=== PATIENT | female | born 1945 | race Caucasian/White ===

== ENCOUNTER 2016-06-02 07:44 | Inpatient (IN) | payer MEDICARE, OTHER ==
[2016-06-02] MEDS ORDERED: SODIUM CHLORIDE 0.9% 1,000 ML IV STA (08:00)
[2016-06-02] MEDS ORDERED: HYDROmorphone 1 MG/ML 1 ML SYRINGE IVP STA (08:00)
[2016-06-02] MEDS ORDERED: SODIUM CHLORIDE 0.9% 500 ML IV STA (08:00)
--- NOTE | 2016-06-02 09:26 | ED ---
General Adult HPI - General Chief complaint: Chest Pain Stated complaint: chest pain Time Seen by Provider: 06/02/16 07:52 Source: patient, EMS, RN notes reviewed, old records reviewed Mode of arrival: EMS Limitations: no limitations - History of Present Illness Initial comments: This is a 71-year-old female here for evaluation. This patient presents for evaluation of chest pain. Significant chest pain. Patient has history of breast cancer, patient is a separate visit transfer patient from our hospital for evaluation of new bony metastasis and chest pain. No fevers cough or congestion, patient pain is currently controlled - Related Data Home Medications Medication Instructions Recorded Confirmed Anastrozole [Arimidex] 1 mg PO DAILY 10/23/13 06/02/16 Escitalopram [Lexapro] 20 mg PO DAILY 10/23/13 06/02/16 Hydrochlorothiazide [Hydrodiuril] 25 mg PO DAILY 10/23/13 06/02/16 Ibuprofen [Motrin] 600 mg PO Q6H PRN 10/23/13 06/02/16 Metoprolol Succinate (ER) [Toprol 50 mg PO DAILY 10/23/13 06/02/16 XL] NIFEdipine XL [Procardia XL] 30 mg PO DAILY 08/12/14 06/02/16 Calcium Carbonate [Calcium] 1,200 mg PO DAILY 06/02/16 06/02/16 Cholecalciferol [Vitamin D3] 1,000 unit PO DAILY 06/02/16 06/02/16 Vitamin B Complex 1 cap PO DAILY 06/02/16 06/02/16 Allergies Allergy/AdvReac Type Severity Reaction Status Date / Time Sulfa (Sulfonamide Allergy Rash/Hives Verified 06/02/16 08:40 Antibiotics) Review of Systems ROS Statement: Those systems with pertinent positive or pertinent negative responses have been documented in the HPI. ROS Other: All systems not noted in ROS Statement are negative. Past Medical History Past Medical History: Cancer, Deep Vein Thrombosis (DVT), Hypertension Additional Past Medical History / Comment(s): LEFT BREAST CA 2010, DVT IN 2011 R /T TO INFUSAPORT RT SIDE, BACK PAIN History of Any Multi-Drug Resistant Organisms: None Reported Past Surgical History: Breast Surgery, Section Additional Past Surgical History / Comment(s): LEFT MASTECTOMY, INFUSAPORT IN AND NOW OUT, PAIN CLINIC PROCEDURES Past Anesthesia/Blood Transfusion Reactions: Motion Sickness, Postoperative Nausea & Vomiting (PONV) Past Psychological History: Depression Smoking Status: Never smoker Past Alcohol Use History: None Reported Past Drug Use History: None Reported - Past Family History Mother Family Medical History: No Reported History General Exam Limitations: no limitations General appearance: alert, in no apparent distress, anxious Head exam: Present: atraumatic, normocephalic, normal inspection Eye exam: Present: normal appearance, PERRL, EOMI. Absent: scleral icterus, conjunctival injection, periorbital swelling ENT exam: Present: normal exam, mucous membranes moist Neck exam: Present: normal inspection. Absent: tenderness, meningismus, lymphadenopathy Respiratory exam: Present: normal lung sounds bilaterally. Absent: respiratory distress, wheezes, rales, rhonchi, stridor Cardiovascular Exam: Present: regular rate, normal rhythm, normal heart sounds. Absent: systolic murmur, diastolic murmur, rubs, gallop, clicks GI/Abdominal exam: Present: soft, normal bowel sounds. Absent: distended, tenderness, guarding, rebound, rigid Extremities exam: Present: normal inspection, full ROM, normal capillary refill. Absent: tenderness, pedal edema, joint swelling, calf tenderness Back exam: Present: normal inspection Neurological exam: Present: alert, oriented X3, CN II-XII intact Psychiatric exam: Present: normal affect, normal mood Skin exam: Present: warm, dry, intact, normal color. Absent: rash Course Vital Signs 06/02/16 06/02/16 06/02/16 07:50 08:44 10:05 Temperature 99 F Pulse Rate 72 75 64 Respiratory 14 16 18 Rate Blood Pressure 131/73 130/64 119/71 O2 Sat by Pulse 96 96 97 Oximetry - Reevaluation(s) Reevaluation #1: 06/02/16 10:09 Records from transfer facility are reviewed including CAT scan EKG Findings - EKG Comments: EKG Findings:: EKG shows normal sinus rhythm rate of 60, UT 144, QRS 82, QTC 448 Medical Decision Making - Medical Decision Making 71 female [place] of this transfer patient for evaluation of metastasis, rib fracture secondary to metastasis and chest pain. Patient will be as cardiac observation and serial troponins as well as pain management. Disposition Clinical Impression: Chest pain, Atypical chest pain, Breast cancer, Bone metastases Disposition: ADMITTED IP TO THIS HOSP Condition: Fair Referrals: Kofi Michelle MD [Primary Care Provider] - 1-2 days
[2016-06-02] MEDS ORDERED: MORPHINE SULFATE 4 MG/ML SYRINGE IV PRN (10:07)
[2016-06-02 11:57] LABS: Creatine Kinase 32 U/L (30-135)
[2016-06-02 12:10] LABS: Creatine Kinase MB <0.2 ng/mL (0.0-2.4); Troponin I <0.012 ng/mL (0.000-0.034)
[2016-06-02] MEDS: HYDROmorphone 1 MG/ML 1 ML SYRINGE IVP PRN ×4 (12:19→21:58)
[2016-06-02] MEDS ORDERED: IBUPROFEN 600 MG TAB PO PRN (15:45)
[2016-06-02] MEDS: SODIUM CHLORIDE 0.9% 1,000 ML IV SCH ×2 (16:29→23:15)
[2016-06-02] MEDS ORDERED: ESCITALOPRAM 20 MG TAB PO STA (16:53)
[2016-06-02] MEDS ORDERED: METOPROLOL SUCCINATE (ER) 50 MG TAB.ER.24H PO STA (16:53)
[2016-06-02] MEDS: HYDROCHLOROTHIAZIDE 25 MG TAB PO SCH (17:24)
[2016-06-02] MEDS ORDERED: ZOLPIDEM 5 MG TAB PO PRN (18:42)
[2016-06-02 19:08] LABS: Creatine Kinase 36 U/L (30-135)
[2016-06-02 19:23] LABS: Creatine Kinase MB <0.2 ng/mL (0.0-2.4); Troponin I <0.012 ng/mL (0.000-0.034)
--- NOTE | 2016-06-02 22:06 | HP ---
DATE OF ADMISSION: 06/02/2016 CHIEF COMPLAINT: Back pain. HISTORY OF PRESENT ILLNESS: This is another admission for this 71-year-old white female who has metastatic breast cancer. She treats with Dr. Rocha. She started to have some back pain about 6 weeks ago and then in the last 2 to 3 days it has grown severe. She was diagnosed in 2000 and was treated with mastectomy, radiation and chemotherapy. She cannot tolerate the pain and came to the emergency room. REVIEW OF SYSTEMS: She has had no headaches, visual changes, significant abdominal pain, vomiting, melena, hematochezia, renal complaints, etc. She has had no history of any heart disease. She does have hypertension. She is not diabetic. Past medical history, family history, and personal histories these are to be found in other records in the hospital. Her medications are listed on her MAR. ALLERGIES: SHE IS ALLERGIC TO SULFA. PAST SURGICAL HISTORY: She has had the breast treatments, . She does not smoke. PHYSICAL EXAMINATION: Blood pressure is 121/82 with a pulse of 85 and she is afebrile. GENERAL: She appeared to be well developed, well-nourished and in some distress with movement. HEENT: Head, ears, eyes, nose, mouth, and throat were normal. Neck veins not distended. Thyroid is not enlarged. CHEST: Clear. CARDIAC: Normal sinus rhythm and the abdomen is slightly protuberant. There are no masses or visceromegaly. EXTREMITIES: Normal. NEUROLOGICAL: She is intact. She is admitted to the hospital with diagnoses: Intractable bone pain due to metastases from her breast carcinoma. PLAN: 1. Bed rest. 2. IV fluids. 3. Analgesia. 4. Oncology consult.
[2016-06-03] MEDS: HYDROmorphone 1 MG/ML 1 ML SYRINGE IVP PRN ×7 (00:50→22:57)
[2016-06-03 01:56] LABS: Cholesterol 200 mg/dL (<200); HDL Cholesterol 54 mg/dL (40-60); Triglycerides 183 mg/dL (<150)
[2016-06-03] MEDS: SODIUM CHLORIDE 0.9% 1,000 ML IV SCH ×2 (06:02→12:00)
[2016-06-03] MEDS ORDERED: HYDROCHLOROTHIAZIDE 25 MG TAB PO SCH (09:00)
[2016-06-03] MEDS: METOPROLOL SUCCINATE (ER) 50 MG TAB.ER.24H PO SCH (09:15)
[2016-06-03] MEDS: ESCITALOPRAM 20 MG TAB PO SCH (09:15)
[2016-06-03] MEDS: NIFEdipine XL 30 MG TAB.ER.24 PO SCH (09:15)
[2016-06-03] MEDS: HYDROCHLOROTHIAZIDE 25 MG TAB PO SCH (09:15)
[2016-06-03] MEDS: CHOLECALCIFEROL 1,000 UNIT TAB PO SCH (09:15)
[2016-06-03] MEDS: ASPIRIN 325 MG TAB PO SCH (09:15)
[2016-06-03] MEDS: CALCIUM CARBONATE 500 MG CHEWABLE PO SCH (09:15)
[2016-06-03] MEDS: ANASTROZOLE 1 MG TAB PO SCH (09:16)
[2016-06-03] MEDS: ENOXAPARIN 40 MG/0.4 ML SYRINGE SQ SCH (09:16)
[2016-06-03] MEDS ORDERED: B COMPLEX-VIT C-VIT E-ZINC 1 EACH TAB PO SCH (12:00)
[2016-06-03] MEDS: ONDANSETRON 4 MG/2 ML VIAL IVP PRN ×2 (13:35→19:13)
--- NOTE | 2016-06-03 14:02 | P.CONS ---
History of Present Illness - Reason for Consult Consult date: 06/03/16 breast cancer, bone mets Requesting physician: Frank Bartlett - Chief Complaint intractable pain - History of Present Illness Mrs. Broussard is a very pleasant female pt of Dr. 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 Pt had left modified radical mastectomy with 12/08 LN positive. She had adjuvant chemotherapy with dose dense adriamycin and cytoxan followed by 12 weekly Taxol on 05/18/2011. She then completed adjuvant radiation therapy, 32 treatments, 07/29/2011. She was then place on arimidex and has been on that for 5 years. Pt had bone density in July 2011 revealing osteopenia. Follow up CT CAP 07/02/2012 revealed no evidence of disease, she had a stable 4mm RLL lung nodule-stable since at least since 2010. Bone scan on 06/28/2012 revealed no evidence of disease. She had a spine MRI on 12/07/12, ordered by PCP, for back pain, there was an area on the throacic spine that was unable to be further defined, further inaging did not reveal definitive met. Pt had a brain MRI in March 2013 for dizziness and vertigo which was negative for brain metastasis and her symptoms ultimately resolved. Mammogram 08/07/2013, negative, bone density on 08/07/2013 revealed osteopenia, bone density on 08/10/2015 revealed persistent osteopenia, slightly worse compared to previous one, pt refused RANK ligand therapy. Mammogram on was negative. Pt had an episode of vertigo again in May 2015, CT scan of brain was negative and her vertigo improved. Pt last seen by Dr. Rocha 03/11, 6 mo f/u was planned with bone density sched prior to OV. Pt stated that for about the last 6 weeks she has had more upper back pain, OTC remedies were helping but the pain progressed to the point that OTC meds were not helping, the pain is radiating the the anterior chest, under the ribs, she also has right rib pain. Pt denies fevers, sweats, lymph node swelling, dysphagia, anorexia, nausea, she does not feel the pain in her chest is cardiac "it feels deep", she denies palpitations, SOB, cough, abd pain or distension, changes in bowel or bladder habits, no acute changes in energy levels, excessive fatigue, weakness, numbness or tingling. Review of Systems All systems: negative Constitutional: Reports as per HPI Past Medical History Past Medical History: Cancer, Deep Vein Thrombosis (DVT), Hypertension, Osteoarthritis (OA) Additional Past Medical History / Comment(s): LEFT BREAST CA 2010 with surgery/ chemo/radiation, R subclavian DVT IN 2011 R/T TO INFUSAPORT, arthritis back, BACK PAIN-has had pain injections which helped History of Any Multi-Drug Resistant Organisms: None Reported Past Surgical History: Breast Surgery, Section, Tubal Ligation Additional Past Surgical History / Comment(s): L breast bx, LEFT MASTECTOMY, INFUSAPORT IN AND NOW OUT, PAIN CLINIC PROCEDURES, cataracts bilaterally with lens implants, colonoscopy-normal. Past Anesthesia/Blood Transfusion Reactions: Motion Sickness, Postoperative Nausea & Vomiting (PONV) Past Psychological History: Depression Additional Psychological History / Comment(s): Pt states she is on Lexapro and it works well with her depression. She resides with her spouse. She is independetn. Smoking Status: Never smoker Past Alcohol Use History: Rare Past Drug Use History: None Reported - Past Family History Father Family Medical History: Cancer Additional Family Medical History / Comment(s): Father of prostate cancer at the age of 72yrs. Mother Family Medical History: No Reported History Additional Family Medical History / Comment(s): Mother was healthy and at the age of 80yrs. Medications and Allergies Home Medications Medication Instructions Recorded Confirmed Type Anastrozole [Arimidex] 1 mg PO DAILY 10/23/13 06/02/16 History Escitalopram [Lexapro] 20 mg PO DAILY 10/23/13 06/02/16 History Hydrochlorothiazide [Hydrodiuril] 25 mg PO DAILY 10/23/13 06/02/16 History Ibuprofen [Motrin] 600 mg PO Q6H PRN 10/23/13 06/02/16 History Metoprolol Succinate (ER) [Toprol 50 mg PO DAILY 10/23/13 06/02/16 History XL] NIFEdipine XL [Procardia XL] 30 mg PO DAILY 08/12/14 06/02/16 History Calcium Carbonate [Calcium] 1,200 mg PO DAILY 06/02/16 06/02/16 History Cholecalciferol [Vitamin D3] 1,000 unit PO DAILY 06/02/16 06/02/16 History Vitamin B Complex 1 cap PO DAILY 06/02/16 06/02/16 History Allergies Allergy/AdvReac Type Severity Reaction Status Date / Time Sulfa (Sulfonamide Allergy Rash/Hives Verified 06/02/16 08:40 Antibiotics) Physical Exam Vitals: Vital Signs Temp Pulse Pulse Resp BP BP Pulse Ox 06/03/16 12:00 97.8 F 71 14 132/73 96 06/03/16 08:00 98.3 F 93 16 146/72 94 L 06/03/16 04:00 98.8 F 104 H 16 181/88 94 L 06/03/16 00:00 98.7 F 108 H 18 164/88 93 L 06/02/16 20:00 98.9 F 81 18 145/79 92 L 06/02/16 16:00 98.4 F 79 16 157/70 92 L 06/02/16 14:38 98 Intake and Output 06/02/16 06/03/16 06/03/16 22:59 06:59 14:59 Intake Total 320 220 Balance 320 220 Intake: Oral 320 220 Other: Voiding Method Toilet Toilet # Voids 1 1 - Constitutional General appearance: average body habitus, cooperative, no acute distress - EENT Eyes: anicteric sclerae, PERRLA, normal appearance ENT: hearing grossly normal, normal oropharynx - Neck Neck: no lymphadenopathy - Respiratory Respiratory: bilateral: CTA (soft crackles in left base on inspiration) - Cardiovascular Rhythm: regular Heart sounds: normal: S1, S2 Abnormal Heart Sounds: no systolic murmur, no diastolic murmur, no rub, no S3 Gallop, no S4 Gallop, no click, no other leg Peripheral Edema: bilateral: None - Gastrointestinal General gastrointestinal: no absent bowel sounds, no decreased bowel sounds, no distended, no hepatomegaly, no hyperactive bowel sounds, normal bowel sounds, no organomegaly, no rigid, no scaphoid, soft, no splenomegaly, no tenderness, no umbilical hernia, no ventral hernia - Integumentary Integumentary: normal - Neurologic Neurologic: CNII-XII intact - Musculoskeletal pain T1-3 area with palpation, no visible deformity or mass. RUQ/rib pain, no deformity seen or felt, pt is guarding Musculoskeletal: strength equal bilaterally - Psychiatric Psychiatric: A&O x's 3, appropriate affect, intact judgment & insight Results Labs: Abnormal Lab Results - Last 24 Hours (Table) 06/02/16 Range/Units 11:19 Triglycerides 183 H (<150) mg/dL Cholesterol 200 H (<200) mg/dL LDL Cholesterol, Calc 109 H (0-99) mg/dL Assessment and Plan (1) Bone metastases Status: Acute (2) Breast cancer Status: Chronic Plan: Discussed with pt that the images from [facility] are suggestive of metastatic disease to the bones. If she now has disease in the bones then her current AI therapy is no longer effective and her treatment will need to be changed. Case was discussed with Dr. Rocha and he will see pt in 2-3 weeks for discussion of the same. No further images at this time, await Rad Onc evaluation. Labs and tumor markers have been ordered. For the acute pain, likely from the spinal bone met, Radiation Oncology has been consulted to review her case and make recommendations. Bisphosphonate therapy will be planned for and given outpatient. Pain meds will be titrated and converted to oral.
[2016-06-03] MEDS: DOCUSATE 100 MG CAP PO SCH ×2 (14:11→22:32)
[2016-06-03 14:26] LABS: Basophils % (A) 0 %; CH 32.9; CHCM 34.1; Eosinophils % (A) 0 %; HCT 35.6 % (34.0-46.0); HDW 2.87; HGB 11.8 gm/dL (11.4-16.0); Luc # (Auto) 0.23; Luc % (Auto) 3; Lymphocytes # (A) 1.3 k/uL (1.0-4.8); Lymphocytes % (A) 15 %; MCH 32.2 pg (25.0-35.0); MCHC 33.2 g/dL (31.0-37.0); Mean Platelet Volume 6.3; Monocytes # (A) 0.3 k/uL (0-1.0); Monocytes % (A) 4 %; Neutrophils # (A) 6.4 k/uL (1.3-7.7); Neutrophils % (A) 78 %; RBC 3.67 m/uL (3.80-5.40); RDW 13.2 % (11.5-15.5); WBC 8.3 k/uL (3.8-10.6); WBC (Perox) 8.44
[2016-06-03 14:34] LABS: ALT 39 U/L (9-52); AST 25 U/L (14-36); Alkaline Phosphatase 68 U/L (38-126); Anion Gap 5 mmol/L; Blood Urea Nitrogen 12 mg/dL (7-17); Calcium 9.8 mg/dL (8.4-10.2); Carbon Dioxide 30 mmol/L (22-30); Chloride 100 mmol/L (98-107); Glucose 125 mg/dL (74-99); Non-African American GFR(MDRD) >60 (>60 ml/min/1.73 sqM); Potassium 3.7 mmol/L (3.5-5.1); Sodium 135 mmol/L (137-145); Total Bilirubin 0.6 mg/dL (0.2-1.3); Total Protein 6.1 g/dL (6.3-8.2)
--- NOTE | 2016-06-03 14:58 | PN ---
CHIEF COMPLAINT: Back pain. HISTORY OF PRESENT ILLNESS: This lady is doing a little bit better, receiving Dilaudid every 3 hours. We are awaiting for a bed on oncology. PHYSICAL EXAM: Chest is clear. Cardiac exam is normal. ABDOMEN: Soft, nontender. IMPRESSION: Metastatic carcinoma of the breast with bone pain in the back. PLAN: Await transfer to Oncology and consult with Oncology.
[2016-06-03 15:08] LABS: Cancer Anitgen 153 10.9 U/mL (<35.1)
--- NOTE | 2016-06-03 17:54 | P.CONS ---
History of Present Illness - Reason for Consult Consult date: 06/03/16 back pain Requesting physician: Tianna Jovon Laura - Chief Complaint Back pain - History of Present Illness The patient is a 71-year-old female with a history of a stage III poorly differentiated adenocarcinoma of the left breast, diagnosed in 2010, ER+/IA-. She was treated with left mastectomy with 9 out of 14 lymph nodes positive. She subsequently underwent AC chemotherapy followed by Taxol finishing in April 2011. She then underwent adjuvant radiotherapy to the left chest wall. She has been maintained on a room index since that time. Over the past 6 weeks, the patient reports she has had worsening upper back pain between the shoulder blades. She notes this discomfort was rather mild when it started, but has progressively worsened. She notes that any motion can exacerbate this pain, and that is significantly worse with coughing. The patient reports her pain at home was up to 10 out of 10 over the past week. Initially, she used Motrin but this provided no relief. She recently saw her primary care physician, and was initiated on [place] 7.5 mg tabs. These pills again provided no relief. She also has some right anterior sternal discomfort, which is not as severe as the back pain. The patient denies any difficulty with numbness or tingling in the extremities, weakness in the arms or legs, saddle anesthesia or loss of bladder/bowel control. The patient initially presented to the ER in [place]. A CT scan of the chest performed revealed multifocal osseous lytic infiltration, notably at the cervical and thoracic spinal junction consistent with metastatic disease. Note was also made of a healing right rib pathologic fracture. The patient subsequently presented to [facility]. Review of Systems Constitutional: Denies chills, Denies fever Eyes: denies blurred vision Ears: deny: decreased hearing Cardiovascular: Reports chest pain (radiation from back pain) Respiratory: Reports cough Gastrointestinal: Denies abdominal pain Musculoskeletal: Reports as per HPI Neurological: Denies aphasia, Denies ataxia, Denies sensory deficit Psychiatric: Denies anxiety Past Medical History Past Medical History: Cancer, Deep Vein Thrombosis (DVT), Hypertension, Osteoarthritis (OA) Additional Past Medical History / Comment(s): LEFT BREAST CA 2010 with surgery/ chemo/radiation, R subclavian DVT IN 2011 R/T TO INFUSAPORT, arthritis back, BACK PAIN-has had pain injections which helped History of Any Multi-Drug Resistant Organisms: None Reported Past Surgical History: Breast Surgery, Section, Tubal Ligation Additional Past Surgical History / Comment(s): L breast bx, LEFT MASTECTOMY, INFUSAPORT IN AND NOW OUT, PAIN CLINIC PROCEDURES, cataracts bilaterally with lens implants, colonoscopy-normal. Past Anesthesia/Blood Transfusion Reactions: Motion Sickness, Postoperative Nausea & Vomiting (PONV) Past Psychological History: Depression Additional Psychological History / Comment(s): Pt states she is on Lexapro and it works well with her depression. She resides with her spouse. She is independetn. Smoking Status: Never smoker Past Alcohol Use History: Rare Past Drug Use History: None Reported - Past Family History Father Family Medical History: Cancer Additional Family Medical History / Comment(s): Father of prostate cancer at the age of 72yrs. Mother Family Medical History: No Reported History Additional Family Medical History / Comment(s): Mother was healthy and at the age of 80yrs. Medications and Allergies Home Medications Medication Instructions Recorded Confirmed Type Anastrozole [Arimidex] 1 mg PO DAILY 10/23/13 06/02/16 History Escitalopram [Lexapro] 20 mg PO DAILY 10/23/13 06/02/16 History Hydrochlorothiazide [Hydrodiuril] 25 mg PO DAILY 10/23/13 06/02/16 History Ibuprofen [Motrin] 600 mg PO Q6H PRN 10/23/13 06/02/16 History Metoprolol Succinate (ER) [Toprol 50 mg PO DAILY 10/23/13 06/02/16 History XL] NIFEdipine XL [Procardia XL] 30 mg PO DAILY 08/12/14 06/02/16 History Calcium Carbonate [Calcium] 1,200 mg PO DAILY 06/02/16 06/02/16 History Cholecalciferol [Vitamin D3] 1,000 unit PO DAILY 06/02/16 06/02/16 History Vitamin B Complex 1 cap PO DAILY 06/02/16 06/02/16 History Allergies Allergy/AdvReac Type Severity Reaction Status Date / Time Sulfa (Sulfonamide Allergy Rash/Hives Verified 06/02/16 08:40 Antibiotics) Physical Exam Vitals: Vital Signs Temp Pulse Pulse Resp BP BP Pulse Ox 06/03/16 12:00 97.8 F 71 14 132/73 96 06/03/16 08:00 98.3 F 93 16 146/72 94 L 06/03/16 04:00 98.8 F 104 H 16 181/88 94 L 06/03/16 00:00 98.7 F 108 H 18 164/88 93 L 06/02/16 20:00 98.9 F 81 18 145/79 92 L Intake and Output 06/03/16 06/03/16 06/03/16 06:59 14:59 22:59 Intake Total 220 Balance 220 Intake: Oral 220 Other: Voiding Method Toilet Toilet # Voids 1 - Constitutional General appearance: average body habitus, no mild distress - EENT Eyes: EOMI, PERRLA - Neck Neck: no lymphadenopathy, normal ROM - Respiratory Respiratory: bilateral: CTA - Cardiovascular Rhythm: regular Heart sounds: normal: S1, S2 - Gastrointestinal General gastrointestinal: no distended, no tenderness - Integumentary Integumentary: no calor, no jaundiced - Neurologic Neurologic: CNII-XII intact - Musculoskeletal Musculoskeletal: strength equal bilaterally - Psychiatric Psychiatric: A&O x's 3, appropriate affect Results CBC & Chem 7: 06/03/16 14:10 06/03/16 14:10 Labs: Abnormal Lab Results - Last 24 Hours (Table) 06/02/16 06/03/16 06/03/16 Range/Units 11:19 14:10 14:10 RBC 3.67 L (3.80-5.40) m/uL Sodium 135 L (137-145) mmol/L Creatinine 0.50 L (0.52-1.04) mg/dL Glucose 125 H (74-99) mg/dL Total Protein 6.1 L (6.3-8.2) g/dL Triglycerides 183 H (<150) mg/dL Cholesterol 200 H (<200) mg/dL LDL Cholesterol, Calc 109 H (0-99) mg/dL CT scan - chest: report reviewed Assessment and Plan (1) Bone metastases Status: Acute Plan: 1. Considering the patient's history of stage III breast cancer, her bony lesions are suspicious for new development of metastatic disease. The patient is neurologically intact at this time, with no clinical evidence of spinal cord compression. Considering the severity of her pain, I did recommend the patient undergo MRI of the spine. Similarly, for restaging, the patient should have a CT scan performed of the chest, abdomen and pelvis. Since her hospitalization, the patient's pain has been under much better control. I did explain to the patient, that a course of palliative radiotherapy directed to the upper thoracic spine may be beneficial in controlling her pain. I explained to the patient, that palliative radiotherapy often allows patients to decrease the amount of pain medication they're taking. I explained the patient, that she would undergo CT simulation for treatment planning. RT would be delivered Monday through Monday, 5 days a week for approximately 1-2 weeks. The possible side effects of this treatment include, but are not limited to; fatigue, skin erythema, dysphagia, odynophagia, and a low risk of long-term side effects. The patient at this time lives in [place]. She has previously had radiotherapy at this center. I explained to the patient, that if her pain is better controlled, and she is able to be discharged, she is welcome to pursue radiotherapy closer to home. At this time, I do not believe the patient requires urgent radiotherapy. I recommend restaging studies, with consideration of biopsy if there is an easily accessible lesion. Time with Patient: Greater than 30
[2016-06-03] MEDS ORDERED: IOHEXOL 350 MG/ML 25 ML BOTTLE (ORAL USE) PO PRN (17:55)
[2016-06-03] MEDS ORDERED: RX INFO: IV CONTRAST WAS GIVEN 1 EACH MISC MISCELLANE PRN (17:55)
--- NOTE | 2016-06-03 20:51 | CT ---
EXAMINATION TYPE: CT ChestAbdPelvis w con DATE OF EXAM: 06/03/2016 8:27 PM COMPARISON: NONE HISTORY: Mid back pain. New bone mets. History of breast cancer. CT DLP: 1136.30 mGycm Automated exposure control for dose reduction was used. CONTRAST: CT scan of the chest, abdomen and pelvis is performed with Oral Contrast and with IV Contrast, patien t injected with 100 mL of Omnipaque 300. FINDINGS: There is patchy atelectasis at the lung bases. There is no evidence of a pulmonary mass. There is no mediastinal adenopathy. There are no hilar masses. There is no pericardial effusion. There is no pleu ral effusion. Liver shows no focal defect. Gallbladder appears normal. Bile ducts are not dilated. Spleen and pancr eas appear normal. There is atherosclerotic vascular calcification. There is no adrenal mass. Kidneys have normal size and contour. There is normal contrast opacificatio n of the kidneys. There is no hydronephrosis. Ureters are not dilated. There are extensive calcificat ions in a uterine fibroid. Bladder distends smoothly. Bladder is mildly dilated. There is no free flu id in the pelvis. I see no intestinal wall thickening. There are no dilated loops. There is a 3.5 cm cyst on the left ovary. There is spurring in the thoracic and lumbar spine. I see no focal bone destr uction. I see no definite focal lytic or blastic process. IMPRESSION: Patchy atelectasis in the lower lobes. No evidence of a pulmonary mass. No filling defect to suggest a pulmonary embolism. Atherosclerotic vascular disease. Dilated urinary bladder consistent with neurogenic bladder or bladder outlet obstruction. Calcified u terine fibroid. Left ovarian cyst. No evidence of osseous metastatic disease. Whole-body bone scan wo uld be helpful for further evaluation if clinically indicated.
--- NOTE | 2016-06-03 22:32 | MR ---
EXAMINATION TYPE: MR cspine/tspine wo/w con DATE OF EXAM: 06/03/2016 10:14 PM COMPARISON: CT cap earlier today. MRI thoracic spine June 29, 2011. HISTORY: Severe back pain, new bone mets from breast cancer. TECHNIQUE: Multiplanar, multisequence imaging of thoracic and lumbar spine are performed without and with IV contrast, patient is injected with 15 cc of MultiHance for the study. FINDINGS: C-SPINE: FINDINGS: Sagittal images of the cervical spine show the craniocervical junction to appear within nor mal limits. The cervical and upper thoracic spinal cord shows AP diameter narrowing or significant s rafat canal stenosis at T1 level. There is levoconvex scoliotic curvature centered in the upper thora cic spine on coronal images. There is grade 2 anterolisthesis of C7 on T1 measured up to 6 mm. The v ertebral body heights are normal. There is mild to moderate multilevel disc space narrowing in the ce rvical spine with small posterior disc herniations mildly effacing anterior thecal sac in the mid to lower cervical spine. There is heterogeneous diminished T1 and increased T2 signal with enhancement i nvolving T1 vertebra consistent with metastatic lesion, extension to posterior elements of adjacent v ertebra is noted is likely reflective of attempted treatment or radiation change. No additional lesio ns otherwise are clearly evident. Axial images at the C2-C3 level are felt to remain within normal limits. Axial images at C3-C4 level show broad-based right paracentral/foraminal disc protrusion effacing ant erolateral thecal sac moderate bilateral neural foraminal narrowing due to some marginal spurring pre sent on axial image 49. Axial images at C4-C5 level show right paracentral disc protrusion effacing anterolateral thecal sac and causing asymmetric moderate right-sided neural foraminal narrowing. Left-sided neural foramen is patent. Axial images at C5-C6 level show broad-based right paracentral disc protrusion effacing anterior thec al sac, bilateral neural foramina are patent. Axial images at C6-C7 level shows central disc protrusion effacing anterior thecal sac nearly antrum up to ventral surface of spinal cord on axial image 27, there is mild to moderate left greater than r ight neural foraminal narrowing at this level identified. Axial images at C7-T1 level are degraded by artifact. T-SPINE: Spinal cord shows normal course, caliber, and signal as it courses the remainder of the thoracic spin e. Vertebral body heights and alignment are satisfactory below T1 level. Slight heterogeneity of bon e marrow signal intensity is identified without additional definitive larger destructive lesion prese nt. There is round T1 and T2 hyperintense lesion at T12 vertebral body level left of midline could re flect hemangioma that was not as well seen on prior exam. More round heterogeneous enhancing lesion L 1 vertebral is more suspicious. This space heights are fairly well-maintained. No large posterior dis c herniations are seen in the thoracic spine. Review of the axial images shows anterior spinal canal effacement or stenosis due to posterior retro pulsion of ossific metastatic lesion causing mild height loss at T1 vertebra seen on axial image 22. Bilateral neural foramina remain patent at T1-T2 level. Remainder thoracic spine felt within normal l imits on axial images.. IMPRESSION: Of most concern is large lesion T1 vertebra causing mild compression type fracture deform ity with retrolisthesis causing spinal canal stenosis and some cord AP diameter narrowing. No definit kathrine cord signal or edema is present currently. Other findings as noted above.
[2016-06-03 22:54] VITALS: RESP 16; TEMP 97.7
[2016-06-04] MEDS: HYDROmorphone 1 MG/ML 1 ML SYRINGE IVP PRN ×4 (03:08→13:25)
[2016-06-04] MEDS: ONDANSETRON 4 MG/2 ML VIAL IVP PRN ×2 (06:23→13:29)
[2016-06-04] MEDS: SODIUM CHLORIDE 0.9% 1,000 ML IV SCH (06:23)
[2016-06-04 08:19] VITALS: BP 134/77; PULSE 72
[2016-06-04] MEDS: CALCIUM CARBONATE 500 MG CHEWABLE PO SCH (09:15)
[2016-06-04] MEDS: ANASTROZOLE 1 MG TAB PO SCH (09:15)
[2016-06-04] MEDS: ESCITALOPRAM 20 MG TAB PO SCH (09:16)
[2016-06-04] MEDS: CHOLECALCIFEROL 1,000 UNIT TAB PO SCH (09:16)
[2016-06-04] MEDS: ASPIRIN 325 MG TAB PO SCH (09:16)
[2016-06-04] MEDS: DOCUSATE 100 MG CAP PO SCH (09:16)
[2016-06-04] MEDS: METOPROLOL SUCCINATE (ER) 50 MG TAB.ER.24H PO SCH (09:16)
[2016-06-04] MEDS: ENOXAPARIN 40 MG/0.4 ML SYRINGE SQ SCH (09:16)
[2016-06-04] MEDS: NIFEdipine XL 30 MG TAB.ER.24 PO SCH (09:17)
[2016-06-04] MEDS: HYDROCHLOROTHIAZIDE 25 MG TAB PO SCH (09:17)
--- NOTE | 2016-06-04 10:49 | P.PN ---
Progress Note - Text I called Ms. Broussard this AM and her pain is stable from yesterday. She is requiring Dilaudid Q3-4 hours at this time. After reviewing her films, her MRI shows a near cord compression at T1. Although there is no cord edema, there is pathologic fracture causing retropulsion with mass effect on the cord. This would not be significantly improved with radiotherapy. I spoke to the on-call neurosurgeon at [facility] (Dr. Gomez), and based on his evaluation of her films and clinical scenario - he felt she would benefit from surgical intervention. I contacted the patient's nurse regarding transfer and they were able to discuss this with Dr. Michelle. The patient will be arranged for transfer today. I spoke with the patient regarding this plan and she is agreeable. I did discuss with the patient that I will be able to monitor her progress at [facility] as I also have privileges there.
--- NOTE | 2016-06-04 17:47 | DS ---
DATE OF ADMISSION: 06/02/2016 DATE OF DISCHARGE: 06/04/2016 HISTORY OF PRESENT ILLNESS: History of present illness and physical examination: This lady's history and physical can be found in the initial work-up. COURSE IN THE HOSPITAL: After admission, she was placed on bed rest and started analgesia with Dilaudid. She was worked up and found to have a dorsal spine lesion which was thought to put her at risk for an acute neurologic event. It was recommended that she be transferred to a tertiary hospital under the care of neurosurgery for laminectomy and decompression. This is being arranged and she will be transferred possibly to a [facility]. FINAL DIAGNOSIS(ES): Intractable pain secondary to metastatic carcinoma of the breast with impending thoracic spine trauma. Operations: None. CONSULTATIONS: Oncology. CONDITION ON DISCHARGE: She is improved.
== END 2016-06-04 13:55 | disposition short-term general hospital (02) | DRG 543 ==
LOC: EC 07:44 → 3OBS 10:07 → OBSVTOIN 10:07 → 3OBS 06-03 11:22 → 5ONC 06-03 16:25
PROVIDERS: ADMIT Family Medicine; ATTEND Family Medicine
DX: C79.51 Secondary malignant neoplasm of bone (principal); M84.58XA Pathological fracture in neoplastic disease, other specified site, initial encounter for fracture; C50.912 Malignant neoplasm of unspecified site of left female breast; G95.29 Other cord compression; I10 Essential (primary) hypertension; G89.3 Neoplasm related pain (acute) (chronic); M46.90 Unspecified inflammatory spondylopathy, site unspecified; R05 Cough; F32.9 Major depressive disorder, single episode, unspecified; M85.80 Other specified disorders of bone density and structure, unspecified site; Z96.1 Presence of intraocular lens; Z86.718 Personal history of other venous thrombosis and embolism; Z79.811 Long term (current) use of aromatase inhibitors; Z17.0 Estrogen receptor positive status [ER+]; Z80.42 Family history of malignant neoplasm of prostate; Z79.899 Other long term (current) drug therapy; Z88.2 Allergy status to sulfonamides; Z90.12 Acquired absence of left breast and nipple; Z98.51 Tubal ligation status; Z98.42 Cataract extraction status, left eye; Z98.41 Cataract extraction status, right eye; Z92.3 Personal history of irradiation; Z92.21 Personal history of antineoplastic chemotherapy; Z87.311 Personal history of (healed) other pathological fracture
CPT/HCPCS: 71260; 72156; 72157; 74177; 80053; 80061; 82550; 82553; 84484; 85025; 86300; 93005; 96361; 96374; 99285

== ENCOUNTER → 2016-07-11 | Outpatient (CLI) | payer MEDICARE, OTHER ==
--- NOTE | 2016-07-11 14:58 | XR ---
EXAMINATION TYPE: XR foot complete RT DATE OF EXAM: 07/11/2016 2:41 PM COMPARISON: NONE HISTORY: 71-year-old female monoarthritis right ankle/foot, right posterior lateral foot pain. TECHNIQUE: 3 views FINDINGS: There is mild degenerative change at the first MTP joint with a mild hallux valgus and bunion formati on. Additional degenerative change at the first metatarsal sesamoid joint. There may be some addition al degenerative change at the calcaneocuboid joint with marginal spurring and slight joint space narr owing. Small plantar calcaneal spur noted. No acute fracture or dislocation. IMPRESSION: 1. Mild first MTP joint osteoarthrosis with mild hallux valgus and bunion. 2. Suggestion of additional degenerative change at the calcaneal cuboidal joint. 3. Small plantar calcaneal spur.
== END ==
LOC: RADXRMAIN 14:29
PROVIDERS: ATTEND Radiology Radiation Oncology
DX: M19.071 Primary osteoarthritis, right ankle and foot (principal); M20.11 Hallux valgus (acquired), right foot; M21.611 Bunion of right foot; M77.31 Calcaneal spur, right foot

== ENCOUNTER → 2016-08-17 | Outpatient (CLI) | payer MEDICARE, OTHER ==
--- NOTE | 2016-08-17 09:10 | XR ---
EXAMINATION TYPE: XR cervical spine w flex/ext DATE OF EXAM ORDERED: 08/17/2016 9:04 AM HISTORY: D43.4 tumor resection. COMPARISON: None. FINDINGS: There has been a previous ACDF extending from C7 to T2 with an interbody fusion. There is been posterior fusion extending from C5 to T5. Alignment remains normal. Atlantoaxial relationships a re normal. Prevertebral soft tissues are normal. I do not see abnormal motion of the spine in flexion or extension. Intervertebral foramina are obscur ed. IMPRESSION: EXTENSIVE POSTSURGICAL CHANGE.
== END | disposition home or self-care (01) ==
LOC: RADXRMAIN 08:32
PROVIDERS: ATTEND Neurological Surgery
DX: Z09 Encounter for follow-up examination after completed treatment for conditions other than malignant neoplasm (principal); Z86.03 Personal history of neoplasm of uncertain behavior
CPT/HCPCS: 72052

== ENCOUNTER → 2016-08-17 | Outpatient (CLI) | payer MEDICARE, OTHER ==
--- NOTE | 2016-08-17 16:35 | MR ---
EXAMINATION TYPE: MR cspine/tspine wo/w con DATE OF EXAM: 08/17/2016 8:18 AM COMPARISON: 06/03/2016 HISTORY: neoplasm of uncertain behavior spinal cord CONTRAST: Performed utilizing 15 mL intravenous MultiHance gadolinium contrast. TECHNIQUE: Multiplanar multiecho imaging on a 3.0 Eleni magnet is performed through the cervical spin e. FINDINGS: The craniovertebral junction is normal. Vertebral body alignment is normal. Cervical fus ion is present C7 through approximately T4 with posterior pedicle screws. Susceptibility artifact is present at these levels. C7-T1: No focal disc herniation or significant disc bulge is evident. No spinal canal stenosis or n eural foraminal stenosis is present. Exam is limited due to susceptibility artifact within the pedicl es. C6-7: Mild anterior thecal sac compression from minimal disc bulge is present. No spinal canal stenos is or neural foraminal stenosis is present.. C5-6: There is loss of disc height is level. Central focal disc bulge is present with anterior thecal sac compression. No cord contact is evident. Moderate left mild right foraminal narrowing is present .. C4-5: There is disc bulging in the central and right paracentral region with extension to the right f oramen. There is moderate anterior thecal sac compression. Left foramen is patent. Moderate right for aminal stenosis is present.. C3-4: Mild disc bulge is present slightly greater to the right paracentral region. No cord contact is evident. No spinal canal stenosis or neural foraminal stenosis is evident.. C2-3: No focal disc herniation or significant disc bulge is evident. No spinal canal stenosis or renny ral foraminal stenosis is present. IMPRESSIONS: 1. Previous spondylolisthesis and signal abnormality T1 is poorly visualized on the current examinati on at this level. 2. There is some disc bulging without cord contact through the upper and mid cervical spine. 3. Please also see thoracic spine dictation the same date. EXAMINATION TYPE: MR yovanyine/tspine wo/w con DATE OF EXAM: 08/17/2016 8:18 AM COMPARISON: NONE HISTORY: neoplasm of uncertain behavior spinal cord CONTRAST: Performed utilizing 15 mL intravenous MultiHance gadolinium contrast. TECHNIQUE: Multiplanar, multiecho imaging on a 3.0 Eleni magnet is performed through the thoracic spi ne. There is a pseudomeningocele likely extending from the T2-T3 level. This extends posterior to the spi nous processes and is estimated at 1.6 cm in depth and approximately 6.7 cm in craniocaudal dimension . Maximum transverse dimension is estimated 3.5 cm. On axial images susceptibility artifact prevents evaluation of the spinal canal at one level. However , the remaining spinal canal is visualized and also when compared to the cervical spine images appear s patent without spinal canal stenosis. Spinal cord maintains normal signal through its visualized course. Vertebral body alignment is normal. Previous compression subluxation at T1 is not evident on the curr ent exam Lower thoracic vertebral body heights are preserved. Upper thoracic vertebral body heights are limite d in evaluation due to susceptibility artifact from pedicle screws and rods. Disc heights are preserved. Disc hydration levels are preserved. No spinal canal stenosis is evident. IMPRESSIONS: 1. 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 2. Spinal cord maintains normal signal without compression or distortion through its visualized cours e. 3. No spinal canal stenosis in the upper thoracic spine at the previous abnormality.
== END | disposition home or self-care (01) ==
LOC: RADMRIMAIN 07:06
PROVIDERS: ATTEND Neurological Surgery
DX: M50.21 Other cervical disc displacement, high cervical region (principal); M43.14 Spondylolisthesis, thoracic region; G96.19 Other disorders of meninges, not elsewhere classified; D43.4 Neoplasm of uncertain behavior of spinal cord; Z98.890 Other specified postprocedural states
CPT/HCPCS: 72156; 72157; A9577; 72052

== ENCOUNTER → 2018-11-08 | Outpatient (CLI) | payer MEDICARE, OTHER ==
--- NOTE | 2018-11-09 00:27 | MR ---
EXAMINATION TYPE: MR brain wo/w con DATE OF EXAM: 11/08/2018 COMPARISON: 04/12/2013 HISTORY: Dizziness, blurred vision, breast ca, bone mets TECHNIQUE: Multiplanar, multisequence images of the brain and brainstem is performed without and with IV contras t, utilizing 7.5 mL intravenous Gadavist . FINDINGS: There is some cerebral cortical atrophy. There is no mass effect nor midline shift. There is no sign of intracranial hemorrhage. There is no evidence of acute cortical infarct. On the T2 and FLAIR image s there are numerous foci of abnormal increased signal at the segundo-white matter junction of both cere bral hemispheres. These measure up to 10 mm. Total number is more than 40. Cerebellum appears relativ daya normal. Brainstem is intact. Corpus callosum is intact. Sella turcica appears normal. Contrast images show no pathologic enhancement. There is normal contrast opacification of the venous sinuses. IMPRESSION: Cerebral atrophy. Numerous white matter high signal foci are peripheral and more likely r elated to chronic small vessel ischemia. Demyelinating disease not excluded. There is increase in siz e and number of the lesions compared to old MR scan. I see no evidence of intracranial metastatic dis ease.
== END | disposition home or self-care (01) ==
LOC: RADMRIMAIN 18:35
PROVIDERS: ATTEND Internal Medicine Hematology & Oncology
DX: G31.9 Degenerative disease of nervous system, unspecified (principal); R90.89 Other abnormal findings on diagnostic imaging of central nervous system; I69.998 Other sequelae following unspecified cerebrovascular disease; C50.512 Malignant neoplasm of lower-outer quadrant of left female breast
CPT/HCPCS: 70553; A9585

== ENCOUNTER → 2019-12-16 | Outpatient (CLI) | payer MEDICARE, OTHER ==
--- NOTE | 2019-12-23 12:01 | MR ---
EXAMINATION TYPE: MR abdomen wo/w con DATE OF EXAM: 12/16/2019 COMPARISON: Outside CT December 06, 2019 and older CTs. HISTORY: Liver Lesion, hepatomegaly, breast ca. Recent abnormal CT. CONTRAST: Standard multiplanar, multisequence MRI departmental protocol utilizing 7.5 mL intravenous Gadavist g adolinium contrast. Imaging performed of the abdomen focusing on the liver. FINDINGS: Liver: Liver remains normal in size. There is redemonstration of now 2.1 cm new lesion or mass in th e left hepatic lobe of T1 hypointensity and T2 hyperintensity, dynamic postcontrast images show heter ogeneous rim-type progressive enhancement. No additional concerning solid or cystic masses are identi fied. No biliary dilatation. Gallbladder it is thought within normal limits. Other: Stable 8 mm enhancing focus along the anterior-inferior margin of the proximal pancreatic body seen best image 311 series 901. Spleen and both adrenal glands remain within normal limits. Persiste nt prominent right renal pelvis and proximal right sided hydroureter. Persistent markedly distended b ladder extending into the mid to lower abdomen right of midline slightly less prominent from recent C T. No abdominal ascites. No suspicious abdominal adenopathy. Enhancing bony lesion inferior T10 level noted image 423 series 901 posterior left aspect. Additional lesion at the L1 vertebral less well-seen. Overall heterogeneity of bone marrow signal. IMPRESSION: Left hepatic lobe lesion perhaps slightly increased in size from recent CT there is new f rom 2017 with rim type enhancement strongly suspicious for metastatic disease given patient's history of breast cancer.
== END | disposition home or self-care (01) ==
LOC: RADMRIMAIN 07:49
PROVIDERS: ATTEND Internal Medicine Hematology & Oncology
DX: C50.512 Malignant neoplasm of lower-outer quadrant of left female breast (principal); K76.9 Liver disease, unspecified
CPT/HCPCS: 74183; A9585

== ENCOUNTER → 2020-01-15 | Day surgery (SDC) | payer MEDICARE, OTHER ==
[~2020-01-15] MED LIST: HYDROmorphone 0.5 MG/0.5 ML SYRINGE IVP STA
[2020-01-15 09:21] VITALS: TEMP 98.2
[2020-01-15 09:26] LABS: Mean Platelet Volume 6.2; Platelet Count 345 k/uL (150-450)
[2020-01-15 09:36] LABS: INR 0.9 (<1.2); Prothrombin Time 9.7 sec (9.0-12.0)
[2020-01-15 12:51] VITALS: RESP 18
[2020-01-15 14:34] VITALS: BP 115/60; PULSE 62
--- NOTE | 2020-01-15 16:22 | US ---
EXAMINATION TYPE: US biopsy liver DATE OF EXAM: 01/15/2020 HISTORY: Left lobe liver mass, breast carcinoma. FINDINGS: Maximal barrier technique was utilized. Hand hygiene achieved with soap and water and alco hol-based hand rub. The skin overlying a suitable path to the patient's lobe liver mass was localized with ultrasound and the overlying skin prepped and draped. Ultrasound was utilized with sterile adeel hnique. Lidocaine was used for local anesthesia. A skin kitty was made with a scalpel. An 18-gauge needle was advanced under direct ultrasound guidance and core specimen obtained of the mass. Single p ass was made. Specimen submitted in formalin to Pathology. Following the procedure, hemostasis achi eved and the patient is discharged in stable condition without complication. IMPRESSION:STATUS POST ULTRASOUND GUIDED CORE BIOPSY OF left lobe liver MASS, PATHOLOGY IS PENDING. THIS PROCEDURE IS PERFORMED BY THE UNDERSIGNED.
== END ==
LOC: RADPROMAIN 08:44
PROVIDERS: ATTEND Internal Medicine Hematology & Oncology
DX: C78.7 Secondary malignant neoplasm of liver and intrahepatic bile duct (principal); C50.912 Malignant neoplasm of unspecified site of left female breast; Z88.2 Allergy status to sulfonamides
CPT/HCPCS: 85049; 85610; 88342; 88307; 88341; 36415; 47000; 76942; J1170

== ENCOUNTER 2020-09-22 07:53 | Day surgery (SDC) | payer MEDICARE, OTHER ==
[2020-09-22] MEDS ORDERED: ALPRAZolam 0.25 MG TAB PO PRN (08:24)
[2020-09-22] MEDS ORDERED: HYDROmorphone 0.5 MG/0.5 ML SYRINGE IVP PRN (08:24)
[2020-09-22 08:34] LABS: Mean Platelet Volume 6.6; Platelet Count 341 k/uL (150-450)
[2020-09-22 08:42] LABS: INR 0.9 (<1.2); Prothrombin Time 9.9 sec (9.0-12.0)
[2020-09-22 08:51] VITALS: TEMP 98.4
[2020-09-22] MEDS ORDERED: SODIUM CHLORIDE 0.9% 500 ML 500 ML IV ONE (09:34)
--- NOTE | 2020-09-22 10:09 | US ---
EXAMINATION TYPE: US biopsy liver DATE OF EXAM: 09/22/2020 COMPARISON: NONE HISTORY: Request for left lesion core biopsy Findings: Maximal barrier technique was utilized. Hand hygiene achieved with soap and water and alcohol-based h and rub. The skin overlying a suitable path to the patient's lobe liver mass was localized with ultra sound and the overlying skin prepped and draped. Ultrasound was utilized with sterile technique. Lido jason was used for local anesthesia. A skin kitty was made with a scalpel. An 18-gauge needle was adva nced under direct ultrasound guidance and core specimen obtained of the mass. Single pass was made. Elena skinner submitted in formalin to Pathology. Following the procedure, hemostasis achieved and the suzi ent is discharged in stable condition without complication. IMPRESSION: 1. Successful 18 gauge core biopsy of the requested liver lesion.
[2020-09-22 15:35] VITALS: BP 130/73; RESP 16
[2020-09-22 15:43] VITALS: PULSE 69
== END 2020-09-22 14:05 | disposition home or self-care (01) ==
LOC: RADPROMAIN 07:53
PROVIDERS: ATTEND Internal Medicine Hematology & Oncology
DX: C78.7 Secondary malignant neoplasm of liver and intrahepatic bile duct (principal); C79.51 Secondary malignant neoplasm of bone; Z88.2 Allergy status to sulfonamides
CPT/HCPCS: 36415; 47000; 76942; 85049; 85610; 88307; 88341; 88342